=== PATIENT | female | born 1990 | race African-American/Black ===

== ENCOUNTER 2019-05-21 17:09 | Emergency (ER) | payer MEDICAID ==
[~2019-05-21] VITALS: Ht 167.6 cm; Wt 89.0 kg
[2019-05-21] MEDS ORDERED: DEXAMETHASONE 4MG/ML 1ML VIAL IM ONE (20:00)
[2019-05-21] MEDS ORDERED: DIPHENHYDRAMINE 25MG CAPSULE PO ONE (20:00)
[2019-05-21 20:42] VITALS: BP 147/81
== END 2019-05-21 20:44 | disposition home or self-care (01) ==
LOC: ER 17:09
DX: T78.40XA Allergy, unspecified, initial encounter (principal); L03.213 Periorbital cellulitis; X58.XXXA Exposure to other specified factors, initial encounter
CPT/HCPCS: 96372; 99283; J1100; Q0163